=== PATIENT | male | born 1985 | race Caucasian/White ===

== ENCOUNTER 2021-01-09 13:42 | Emergency (ER) | payer SELFPAY ==
[~2021-01-09] VITALS: Ht 167.6 cm; Wt 69.7 kg
--- NOTE | 2021-01-09 13:56 | PHYS DOC ---
General Adult HPI: HPI: 35-year-old male past medical history epilepsy, presents to the ED brought by EMS after witnessed seizure for approximately 7 minutes. Patient works at a local [employer] house, seen on his side with tonic-clonic movements, not speaking. EMS gave Versed 5 mg IM twice, with resolution of seizure. Unable to obtain history on arrival due to medication adverse effect/sedation. Review of Systems: Review of Systems: Review of systems unable to obtain due to sedation Allergies: Allergies: Allergies Coded Allergies Type Severity Reaction Last Updated Verified cefaclor Allergy Unknown 01/09/21 Yes Physical Exam: PE: Constitutional: Well developed, well nourished, no acute distress, non-toxic appearance. HENT: Normocephalic, atraumatic, moist mucous membranes with no obvious dental avulsion or oral bleeding Eyes: PERRLA, EOMI, conjunctiva normal, no discharge. Neck: Normal range of motion, supple, Nexus C-spine criteria are negative: There is no post midline tenderness, the patient is not intoxicated, there is a normal level of alertness, there are no focal neurologic deficits and there are no distracting injuries, Cardiovascular: S1/2 present, regular rhythm Lungs & Thorax: Not speaking on arrival, bilateral equal chest rise, no tachypnea or increased work of breathing Abdomen: soft, no tenderness, Skin: Warm, dry, no erythema, no rash. [] Back: No midline spinal step-offs or tenderness, no CVA tenderness. [] Extremities: No tenderness, no cyanosis, no lower extremity edema Neurologic: Alert, nods head yes or no, follows commands, Psychologic: Affect normal, calm mood EKG: EKG: [] Radiology/Procedures: Radiology/Procedures: IMAGING REPORT Signed PATIENT: DEJAH ANDRADE ACCOUNT: [id number] : 1985 LOCATION: ER AGE: 35 SEX: M EXAM STATUS: REG ER ORD. PHYSICIAN: JORI HOYT DO REASON: seizure/blunt head injuyr, ams PROCEDURE: CT HEAD AND CERVICAL SPINE WO EXAM: Head and cervical spine CT without contrast. HISTORY: Seizure. Trauma. TECHNIQUE: Computed tomographic images of the head and cervical spine were obtained without contrast. *One or more of the following individualized dose reduction techniques were utilized for this examination: 1. Automated exposure control. 2. Adjustment of the mA and/or kV according to patient size. 3. Use of iterative reconstruction technique. COMPARISON: None. FINDINGS: Head: There is no hemorrhage. There is no mass effect or midline shift. There is no hydrocephalus. There is a cavum septum pellucidum et vergae, an incidental finding. The orbits are unremarkable. There is mild posterior left ethmoid sinus mucosal thickening. The mastoid air cells are clear. Cervical spine: There is mild multilevel endplate remodeling. There is no significant listhesis. There is no fracture or suspicious osseous lesion. There are prominent cervical chain lymph nodes, likely physiologic or reactive in a patient of this age. There is a 3 mm nodular opacity at the right lung apex on the inferior most image which is likely due to volume averaging of a vessel. The combination of degenerative changes results in mild to moderate right foraminal stenosis at C3-C4. No additional significant foraminal or central canal stenosis is seen. IMPRESSION: 1. No acute intracranial finding or evidence of acute cervical spine trauma. 2. Mild multilevel degenerative change involving the cervical spine. This results in [id number] right foraminal stenosis at C3-C4. Electronically signed by: Christiane Handley MD (01/09/2021 2:18 PM) [id number] DICTATED AND SIGNED BY: CHRISTIANE HANDLEY MD DATE: 01/09/21 1415 CC: PCP,NO; JORI HOYT DO ~MTH0 0 Heart Score: C/O Chest Pain: No Risk Factors: Risk Factors: DM, Current or recent (<one month) smoker, HTN, HLP, family history of CAD, obesity. Risk Scores: Score 0 - 3: 2.5% MACE over next 6 weeks - Discharge Home Score 4 - 6: 20.3% MACE over next 6 weeks - Admit for Clinical Observation Score 7 - 10: 72.7% MACE over next 6 weeks - Early Invasive Strategies Course & Med Decision Making: Course & Med Decision Making Pertinent Labs and Imaging studies reviewed. (See chart for details) On reevaluation, patient awake, clinically sober with medical decision-making capacity. Sedating effects are no longer present patient has steady gait. Patient does report a mild headache which is expected given likely blunt injury -was found on the floor between 2 cabinets in the kitchen. There are no external signs of trauma, patient with no midline neck pain. Patient with no neurologic deficits. IVFs and keppra bolus given in the emergency department. Reports compliance with his medications. Denies alcohol or drug use. Will discharge home with strict ED return precautions were given for severe headache, intractable nausea or vomiting, fever, neck pain or neurologic deficits. Encouraged urgent outpatient follow-up with PMD and neurology. Life-threatening processes were considered but are low suspicion at this time, given history, physical exam and ED workup. Pt was educated on all prescription medications and adverse effects. All patient's questions were answered and pt was stable at time of discharge. Life/limb-threatening differential includes but is not limited to, meningitis, encephalitis, intracranial hemorrhage, obstructive hydrocephaly, CVA, carbon monoxide poisoning, cerebral or cavernous venous thrombosis, hypertensive emergency, preeclampsia, giant cell arteritis, glaucoma, carotid or vertebral artery dissection, superior vena cava syndrome, infection, optic neuritis, or space-occupying lesions. I have spoken with the patient and/or caregivers. I explained the patient's condition, diagnoses and treatment plan based on the information available to me at this time. I have answered the patient and/or caregiver's questions and addressed any concerns. The patient and/or caregivers have a good understanding of patient's diagnosis, condition and treatment plan as can be expected at this point. Vital signs have been stable. Patient's condition is stable and appropriate for discharge from the emergency department. Patient will pursue further outpatient evaluation with primary care physician or other designated or consulting physician as outlined in the discharge instructions. The patient and/or caregivers are agreeable to this plan of care and follow-up instructions have been explained in detail. The patient and/or caregivers have received these instructions in written form and have expressed an understanding of the discharge instructions. The patient and/or caregivers are aware that any significant change of condition or worsening of symptoms should prompt immediate return to this or the closest emergency department or call to 911. Prerna Disclaimer: Prerna Disclaimer: This electronic medical record was generated, in whole or in part, using a voice recognition dictation system. Departure Departure: Impression: Primary Impression: Seizure Additional Impressions: Blunt head injury Headache Disposition: HOME / SELF CARE / HOMELESS Condition: STABLE Referrals: KARIS LAWRENCE MD Follow up with your pcp in 1-2 days or [facility] [phone] OR [facility]-Dr. Gastelum [phone] Patient Instructions: General Headache Without Cause, Head Injury, Adult, Seizure, Adult Additional Instructions: FOLLOW UP WITH NEUROLOGY: For definitive management of epilepsy Ping Arteaga MD [address] [place] [address], [address] [place], [place] [id number] OR [address] [place] [id number] EMERGENCY DEPARTMENT GENERAL DISCHARGE INSTRUCTIONS Thank you for coming to [facility] (ED) today and trusting us with you care. We trust that you had a positivie experience in our Emergency Department. If you wish to speak to the department management, you may call the director at [phone]. YOUR FOLLOW UP INSTRUCTIONS ARE FOLLOWS: 1. Do you have a private Doctor? If you do not have a private doctor, please ask for a resource list of physicians or clinics that may be able to assist you with follow up care. 2. The Emergency Physician has interpreted your x-rays. The X-Ray specialist will also review them. If there is a change in the findings, you will be notified in 48 hours when at all possible. 3. A lab test or culture has been done, your results will be reviewed and you will be notified if you need a change in treatment. ADDITIONAL INSTRUCTIONS AND INFORMATION: 1. Your care today has been supervised by a physician who is specially trained in emergency care. Many problems require more than one evaluation for a complete diagnosis and treatment. We recommend that you schedule your follow up appointment as recommended to ensure complete treatment of you illness or injury. If you are unable to obtain follow up care and continue to have a problem, or if your condition worsens, we recommend that you return to the ED. 2. We are not able to safely determine your condition over the phone nor are we able to give sound medical advice over the phone. For these safety reasons, if you call for medical advice we will ask you to come to the ED for further evaluation. 3. If you have any questions regarding these discharge instructions please call the ED at [phone]. SAFETY INFORMATION: In the interest of safety, wellness, and injury prevention; we encourage you to wear your sealbelt, if you smoke; quite smoking, and we encourage family to use a protective helmet for bicycling and other sporting events that present an increased risk for head injury. IF YOUR SYMPTOMS WORSEN OR NEW SYMPTOMS DEVELOP, OR YOU HAVE CONCERNS ABOUT YOUR CONDITION; OR IF YOUR CONDITION WORSENS WHILE YOU ARE WAITING FOR YOUR FOLLOW UP APPOINTMENT; EITHER CONTACT YOUR PRIMARY CARE DOCTOR, THE PHYSICIAN WHOSE NAME AND NUMBER YOU WERE GIVEN, OR RETURN TO THE ED IMMEDIATELY. [facility] Jan 09, 2021 13:56
[2021-01-09] MEDS ORDERED: IV NORMAL SALINE 1,000ML 1,000 ML IV ONE (14:00)
--- NOTE | 2021-01-09 14:20 | RAD ---
EXAM: Head and cervical spine CT without contrast. HISTORY: Seizure. Trauma. TECHNIQUE: Computed tomographic images of the head and cervical spine were obtained without contrast. *One or more of the following individualized dose reduction techniques were utilized for this examina tion: 1. Automated exposure control. 2. Adjustment of the mA and/or kV according to patient size. 3. Use of iterative reconstruction technique. COMPARISON: None. FINDINGS: Head: There is no hemorrhage. There is no mass effect or midline shift. There is no hydrocephalus. Th ere is a cavum septum pellucidum et vergae, an incidental finding. The orbits are unremarkable. There is mild posterior left ethmoid sinus mucosal thickening. The mastoid air cells are clear. Cervical spine: There is mild multilevel endplate remodeling. There is no significant listhesis. Ther e is no fracture or suspicious osseous lesion. There are prominent cervical chain lymph nodes, likely physiologic or reactive in a patient of this age. There is a 3 mm nodular opacity at the right lung apex on the inferior most image which is likely due to volume averaging of a vessel. The combination of degenerative changes results in mild to moderate right foraminal stenosis at C3-C4 . No additional significant foraminal or central canal stenosis is seen. IMPRESSION: 1. No acute intracranial finding or evidence of acute cervical spine trauma. 2. Mild multilevel degenerative change involving the cervical spine. This results in [id number] right foraminal stenosis at C3-C4. Electronically signed by: Christiane Unger MD (01/09/2021 2:18 PM) [id number]
[2021-01-09 14:27] LABS: BASO % 1 % (0-3); EOS % 1 % (0-3); HEMATOCRIT 44.6 % (39.0-53.0); HEMOGLOBIN 15.5 g/dL (13.0-17.5); LYMPH % 19 % (24-48); MEAN CORPUSCULAR HEMOGLOBIN 31 pg (25-35); MEAN CORPUSCULAR HGB CONC 35 g/dL (31-37); MEAN CORPUSCULAR VOLUME 89 fL (79-100); MONO # 0.2 x10^3/uL (0.0-1.1); MONO % 5 % (0-9); NEUT % 75 % (31-73); PLATELET COUNT 190 x10^3/uL (140-400); RED BLOOD COUNT 5.03 x10^6/uL (4.30-5.70); RED CELL DISTRIBUTION WIDTH 12.6 % (11.5-14.5); WHITE BLOOD COUNT 5.3 x10^3/uL (4.0-11.0)
[2021-01-09 14:48] LABS: CALCIUM 8.9 mg/dL (8.5-10.1); GFR 86.1; POTASSIUM 3.4 mmol/L (3.5-5.1)
[2021-01-09 14:55] LABS: ALBUMIN 4.3 g/dL (3.4-5.0); ALBUMIN/GLOBULIN RATIO 1.3 (1.0-1.7); TOTAL PROTEIN 7.5 g/dL (6.4-8.2)
[2021-01-09 16:55] VITALS: BP 116/72
[2021-01-09] MEDS ORDERED: PROCHLORPERAZINE 10 MG/2 ML VIAL. IV ONE (17:00)
[2021-01-09] MEDS ORDERED: diphenhydrAMINE 50 MG/ML VIAL IVP ONE (17:00)
[2021-01-09] MEDS ORDERED: KETOROLAC 15 MG/ML VIAL. IVP ONE (17:00)
[2021-01-09] MEDS ORDERED: DEXAMETHASONE SOD PHOS 10 MG/ML VIAL. IVP ONE (17:00)
== END 2021-01-09 18:38 | disposition home or self-care (01) ==
LOC: ER 13:42
DX: S09.90XA Unspecified injury of head, initial encounter (principal); R56.9 Unspecified convulsions; X58.XXXA Exposure to other specified factors, initial encounter; Y93.89 Activity, other specified; Y92.89 Other specified places as the place of occurrence of the external cause; Y99.8 Other external cause status
CPT/HCPCS: 36415; 70450; 72125; 80053; 82550; 85025; 96365; 96375; 99285; G0480; J0780; J1100; J1200; J1885; J1953; J7030

== ENCOUNTER 2021-01-30 10:38 | Emergency (ER) | payer SELFPAY ==
[~2021-01-30] VITALS: Ht 167.6 cm; Wt 74.6 kg
[2021-01-30] MEDS ORDERED: IV NORMAL SALINE 1,000ML 1,000 ML IV ONE (10:45)
[2021-01-30 11:08] LABS: BASO % 1 % (0-3); EOS # 0.1 x10^3/uL (0.0-0.7); EOS % 2 % (0-3); HEMATOCRIT 44.4 % (39.0-53.0); HEMOGLOBIN 15.1 g/dL (13.0-17.5); LYMPH % 28 % (24-48); MEAN CORPUSCULAR HEMOGLOBIN 31 pg (25-35); MEAN CORPUSCULAR HGB CONC 34 g/dL (31-37); MEAN CORPUSCULAR VOLUME 90 fL (79-100); MONO # 0.3 x10^3/uL (0.0-1.1); MONO % 7 % (0-9); NEUT # 2.3 x10^3uL (1.8-7.7); NEUT % 63 % (31-73); PLATELET COUNT 192 x10^3/uL (140-400); RED BLOOD COUNT 4.95 x10^6/uL (4.30-5.70); RED CELL DISTRIBUTION WIDTH 12.5 % (11.5-14.5); WHITE BLOOD COUNT 3.7 x10^3/uL (4.0-11.0)
--- NOTE | 2021-01-30 11:11 | PHYS DOC ---
Past History Past Surgical History: No Surgical History Additional Smoking Information: chews tobacco Alcohol Use: Sober Additional Alcohol Information: couple beers after work General Adult EDM: Chief Complaint: SEIZURE HPI: HPI: 35-year-old male presents via EMS after seizure. The patient woke up this morning and went to work. 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 He remembers not feeling very well so his coworkers had him sit down. At the last thing he remembers until he woke up in the ambulance. The patient was reported to lose consciousness and had generalized convulsion-like activity. The patient was seen in this emergency room about 3 weeks ago with a similar episode. This was the first time the patient had had a seizure in 4 years. He was given Keppra in the ER but not placed on any medications. The patient tells me he has an appointment with neurology next week. He denies alcohol or drug use. He denies pain or injury at this time. Denies fever or chills. Review of Systems: Review of Systems: Constitutional: Denies fever or chills Eyes: Denies change in visual acuity HENT: Denies nasal congestion or sore throat Respiratory: Denies cough or shortness of breath Cardiovascular: Denies chest pain or edema GI: Denies abdominal pain, nausea, vomiting, bloody stools or diarrhea : Denies dysuria Musculoskeletal: Denies back pain or joint pain Integument: Denies rash Neurologic: Seizure. Denies headache, focal weakness or sensory changes Endocrine: Denies polyuria or polydipsia Lymphatic: Denies swollen glands Psychiatric: Denies depression or anxiety Current Medications: Current Meds: Current Medications Medications (Trade) Dose Ordered Sig/Gino Start Time Stop Time Status Last Admin Dose Admin Levetiracetam 1000 mg/Sodium Chloride 100 ml @ 400 mls/hr 1X ONCE 01/30/21 11:15 01/30/21 11:29 UNV Sodium Chloride 1,000 ml @ 1,000 mls/hr 1X ONCE 01/30/21 10:45 01/30/21 11:44 01/30/21 10:45 1,000 MLS/HR Allergies: Allergies: Allergies Coded Allergies Type Severity Reaction Last Updated Verified cefaclor Allergy Unknown 01/30/21 Yes cephalexin Allergy Unknown 01/30/21 Yes Physical Exam: PE: Constitutional: Well developed, well nourished, no acute distress, non-toxic appearance. [] HENT: Normocephalic, atraumatic, bilateral external ears normal, oropharynx mo ist, no oral exudates, nose normal. [] Eyes: PERRLA, EOMI, conjunctiva normal, no discharge. [] Neck: Normal range of motion, no tenderness, supple, no stridor. [] Cardiovascular: Heart rate regular rhythm, no murmur [] Lungs & Thorax: Bilateral breath sounds clear to auscultation [] Abdomen: Bowel sounds normal, soft, no tenderness, no masses, no pulsatile masses. [] Skin: Warm, dry, no erythema, no rash. [] Back: No tenderness, no CVA tenderness. [] Extremities: No tenderness, no cyanosis, no clubbing, ROM intact, no edema. [] Neurologic: Alert and oriented X 3, normal motor function, normal sensory function, no focal deficits noted. [] Psychologic: Affect flat, judgement normal, mood normal. [] Current Patient Data: Vital Signs: Vital Signs Date Time Temp Pulse Resp B/P (MAP) Pulse Ox O2 Delivery O2 Flow Rate FiO2 01/30/21 11:01 81 15 131/78 (95) 100 Room Air 01/30/21 10:44 98.3 EKG: EKG: [] Radiology/Procedures: Radiology/Procedures: [] Heart Score: C/O Chest Pain: N/A Risk Factors: Risk Factors: DM, Current or recent (<one month) smoker, HTN, HLP, family history of CAD, obesity. Risk Scores: Score 0 - 3: 2.5% MACE over next 6 weeks - Discharge Home Score 4 - 6: 20.3% MACE over next 6 weeks - Admit for Clinical Observation Score 7 - 10: 72.7% MACE over next 6 weeks - Early Invasive Strategies Course & Med Decision Making: Course & Med Decision Making Pertinent Labs and Imaging studies reviewed. (See chart for details) We have loaded the patient with 1 g of Keppra IV. He has had no further seizures in the emergency room. His labs are unremarkable. His urinalysis is unremarkable. His urine drug screen is negative. Given the patient has had another seizure, I feel it prudent to put him on medication for home until he gets to his neurology appointment next week. I will put him on Keppra 500 mg twice daily. He is stable for discharge at this time. [] Prerna Disclaimer: Prerna Disclaimer: This electronic medical record was generated, in whole or in part, using a voice recognition dictation system. Departure Departure: Impression: Primary Impression: Seizure Disposition: HOME / SELF CARE / HOMELESS Condition: STABLE Referrals: PCP,NO (PCP) Patient Instructions: Seizure, Adult Scripts Levetiracetam (KEPPRA) 500 Mg Tablet 1 TAB PO BID for seizure for 15 Days, #30 TAB 0 Refills Prov: ANN CHASE DO 01/30/21 ANN CHASE DO Jan 30, 2021 11:11
[2021-01-30 11:16] LABS: CALCIUM 9.1 mg/dL (8.5-10.1); GFR 86.1; POTASSIUM 3.9 mmol/L (3.5-5.1)
[2021-01-30 11:22] LABS: ALBUMIN 4.1 g/dL (3.4-5.0); ALBUMIN/GLOBULIN RATIO 1.2 (1.0-1.7); TOTAL BILIRUBIN 0.6 mg/dL (0.2-1.0); TOTAL PROTEIN 7.6 g/dL (6.4-8.2)
[2021-01-30 12:29] LABS: BARBITURATES NEG (NEG); BENZODIAZEPINES NEG (NEG); CANNABINOIDS NEG (NEG); COCAINE NEG (NEG); METHADONE NEG (NEG); OPIATES NEG (NEG); PHENCYCLIDINE NEG (NEG)
[2021-01-30 12:54] LABS: AMPHETAMINE/METHAMPHETAMINE NEG (NEG)
[2021-01-30 13:35] LABS: BACTERIA,URINE 0 /HPF (0-FEW); BILIRUBIN,URINE NEG (NEG); CLARITY,URINE CLEAR; COLOR,URINE YELLOW; GLUCOSE,URINE NEG (NEG); NITRITE,URINE NEG (NEG); RBC,URINE 0 /HPF (0-2); UROBILINOGEN,URINE 0.2 mg/dL (0.2 mg/dL); WBC,URINE 0 /HPF (0-4)
[2021-01-30] MEDS ORDERED: LEVE500T56 PO (13:40)
[2021-01-30 13:53] VITALS: BP 132/87
== END 2021-01-30 13:53 | disposition home or self-care (01) ==
LOC: ER 10:38
DX: R56.9 Unspecified convulsions (principal); Z88.1 Allergy status to other antibiotic agents
CPT/HCPCS: 36415; 80053; 80307; 81001; 83605; 85025; 96361; 96365; 99285; J1953; J7030